=== PATIENT | female | born 1980 | race Caucasian/White ===

== ENCOUNTER 2017-01-10 21:30 | Emergency (ER) | payer BC ==
--- NOTE | 2017-01-10 21:35 | UC ---
Lower Extremity/Ankle HPI - HPI Summary HPI Summary: 36 YEAR OLD FEMALE PRESENTS WITH COMPLAINS OF SEVERE RESTLESS LEG SYNDROME. - History of Current Complaint Stated Complaint: LEG PAIN- YEARS Time Seen by Provider: 01/10/17 21:32 Hx Last Menstrual Period: now - Allergies/Home Medications Allergies/Adverse Reactions: Allergies Allergy/AdvReac Type Severity Reaction Status Date / Time Penicillins Allergy Severe Swelling Verified 01/10/17 21:38 Sulfa Drugs Allergy Severe HIVES, Verified 01/10/17 21:38 DIZZINESS Home Medications: Home Medications traMADol TAB* [Ultram*] 100 mg PO BEDTIME PRN 01/10/17 [History Confirmed ] PMH/Surg Hx/FS Hx/Imm Hx - Surgical History Surgical History: Yes Surgery Procedure, Year, and Place: appendectomy, [place]. D&C. Gastric Bypass - Family History Known Family History: Positive: Diabetes - Social History Alcohol Use: None Substance Use Type: None Smoking Status (MU): Former Smoker Review of Systems Constitutional: Negative Skin: Negative Eyes: Negative ENT: Negative Respiratory: Negative Cardiovascular: Negative Gastrointestinal: Negative Motor: Negative Neurovascular: Negative Musculoskeletal: Arthralgia, Myalgia, Other: - RESLESS LEG SYNDROME Neurological: Negative Psychological: Negative All Other Systems Reviewed And Are Negative: Yes Physical Exam Triage Information Reviewed: Yes Eye Exam: Normal ENT Exam: Normal Dental Exam: Normal Neck exam: Normal Neck: Positive: 1 Respiratory Exam: Normal Cardiovascular Exam: Normal Abdominal Exam: Normal Musculoskeletal Exam: Normal Neurological Exam: Normal Psychological Exam: Normal Skin Exam: Normal Lower Extremity Course/Dx - Differential Dx/Diagnosis Provider Diagnoses: RESTLESS LEG SYNDROME Discharge - Discharge Plan Condition: Stable Disposition: HOME Prescriptions: Methocarbamol [Robaxin-750 MG TAB] 750 mg PO Q8HR PRN #30 tab PRN Reason: Spasms - Muscle Patient Education Materials: Restless Legs Syndrome (ED) Referrals: Cesario Long MD [Primary Care Provider] - As Soon As Possible Vinnie Avila MD [Medical Doctor] -
[2017-01-10 21:55] VITALS: BP 145/65
[2017-01-10] MEDS ORDERED: Carisoprodol TAB* 350 MG PO ONE ×2 (22:00→22:02)
== END 2017-01-10 22:12 | disposition home or self-care (01) ==
LOC: UCCORT 21:30
DX: G25.81 Restless legs syndrome (principal); Z87.891 Personal history of nicotine dependence
CPT/HCPCS: 99212; A9270-GY; G0463

== ENCOUNTER 2017-02-13 20:44 | Emergency (ER) | payer BC ==
[2017-02-13 21:04] VITALS: BP 148/74
[2017-02-13] MEDS ORDERED: HYDROcodone/ACETAMIN 5-325 MG* 1 TAB PO ONE (21:19)
--- NOTE | 2017-02-13 21:20 | UC ---
Lower Extremity/Ankle HPI - HPI Summary HPI Summary: right ham string pain after doing a split while sliding in to second base tonight playing softball - History of Current Complaint Chief Complaint: UCLowerExtremity Stated Complaint: LEG INJURY Time Seen by Provider: 02/13/17 20:58 Hx Obtained From: Patient Hx Last Menstrual Period: now ?: No Onset/Duration: Sudden Onset, Lasting Hours, Still Present Severity Initially: Moderate Severity Currently: Moderate Pain Intensity: 8 Pain Scale Used: 0-10 Numeric Aggravating Factor(s): Standing, Ambulation Alleviating Factor(s): Rest Able to Bear Weight: Yes - with pain - Allergies/Home Medications Allergies/Adverse Reactions: Allergies Allergy/AdvReac Type Severity Reaction Status Date / Time Penicillins Allergy Severe Swelling Verified 02/13/17 21:04 Sulfa Drugs Allergy Severe HIVES, Verified 02/13/17 21:04 DIZZINESS Home Medications: Home Medications Gabapentin CAP(*) [Neurontin 100 mg CAP(*)] 100 mg PO TID 02/13/17 [History Confirmed 02/13/17] Melatonin 1 mg PO BEDTIME 02/13/17 [History Confirmed 02/13/17] PMH/Surg Hx/FS Hx/Imm Hx Previously Healthy: No - restless legs, insomnia - Surgical History Surgical History: Yes Surgery Procedure, Year, and Place: appendectomy, [place]. D&C. Gastric Bypass - Family History Known Family History: Positive: Diabetes - Social History Occupation: Employed Part-time Lives: With Family Alcohol Use: None Substance Use Type: None Smoking Status (MU): Former Smoker When Did the Patient Quit Smoking/Using Tobacco: 2010 Review of Systems Constitutional: Negative Skin: Negative Eyes: Negative ENT: Negative Respiratory: Negative Cardiovascular: Negative Gastrointestinal: Negative Genitourinary: Negative Motor: Negative Neurovascular: Negative Musculoskeletal: Negative, Myalgia - right hamstring pain Neurological: Negative Psychological: Negative All Other Systems Reviewed And Are Negative: Yes Physical Exam Triage Information Reviewed: Yes Appearance: Well-Appearing, Pain Distress, Obese Vital Signs: Initial Vital Signs Temp 98.7 F 02/13/17 20:55 Pulse 84 02/13/17 20:55 Resp 18 02/13/17 20:55 BP 148/74 02/13/17 20:55 Pulse Ox 99 02/13/17 20:55 Vital Signs Reviewed: Yes Eye Exam: Normal Eyes: Positive: Conjunctiva Clear ENT Exam: Normal ENT: Positive: Normal ENT inspection, Hearing grossly normal. Negative: Nasal congestion, Nasal drainage, Trismus, Muffled/hoarse voice Dental Exam: Normal Neck exam: Normal Neck: Positive: Supple, Nontender, No Lymphadenopathy Respiratory Exam: Normal Respiratory: Positive: Chest non-tender, No respiratory distress, No accessory muscle use Cardiovascular Exam: Normal Cardiovascular: Positive: RRR, Pulses Normal, Brisk Capillary Refill Musculoskeletal Exam: Normal Musculoskeletal: Positive: Strength Intact, ROM Intact, No Edema, Other: - right posterior thight painful ---no pain hip pelvis, femur, knee Neurological Exam: Normal Neurological: Positive: Alert, Muscle Tone Normal Psychological Exam: Normal Skin Exam: Normal Lower Extremity Course/Dx - Course Course Of Treatment: ice, jamshid wrap, ortho, elevated blood pressure with history of hypertension, pain control - Differential Dx/Diagnosis Differential Diagnosis/HQI/PQRI: Bursitis, Contusion, Fracture (Closed), Sprain , Strain Provider Diagnoses: right ham string strain Discharge - Discharge Plan Condition: Stable Disposition: HOME Prescriptions: Hydrocodone-Acetaminophen [Hydrocodone/Acetaminophen 5-325 mg] 1 - 2 tab PO Q6H PRN #20 tab MDD 6 PRN Reason: Pain Patient Education Materials: Muscle Strain (ED), Core Strengthening Exercises ( GEN), Hamstring Exercises (GEN), Hamstring Injury (ED) Referrals: Corey Brantley MD [Medical Doctor] - 4 Days KRISTY Sky [Primary Care Provider] - 2 Weeks
== END 2017-02-13 21:49 | disposition home or self-care (01) ==
LOC: UCEAST 20:44
DX: S76.811A Strain of other specified muscles, fascia and tendons at thigh level, right thigh, initial encounter (principal); X58.XXXA Exposure to other specified factors, initial encounter; Y93.64 Activity, baseball; Y92.320 Baseball field as the place of occurrence of the external cause; E66.9 Obesity, unspecified; Z88.0 Allergy status to penicillin; Z88.2 Allergy status to sulfonamides; Z87.891 Personal history of nicotine dependence
CPT/HCPCS: 99213; G0463

== ENCOUNTER 2017-04-17 19:45 | Emergency (ER) | payer BC ==
[2017-04-17 19:52] VITALS: BP 153/78
[2017-04-17] MEDS ORDERED: HYDROcodone/ACETAMIN 5-325 MG* 1 TAB PO ONE (20:07)
--- NOTE | 2017-04-17 20:15 | UC ---
Hip/Pelvis Pain - HPI Summary HPI Summary: 36 yo female did a split when she slipped playing V-ball c/o pain right mid ham string similar injury in summer it took about 2 weeks to feel better did not go to PT as was suggested had gastric bypass and told not to take NSAIDS - History Of Current Complaint Chief Complaint: UCLowerExtremity Stated Complaint: LEG INJURY Time Seen by Provider: 04/17/17 19:51 Hx Last Menstrual Period: 03/21/17 Onset/Duration: Sudden Onset, Lasting Hours Severity Initially: Moderate Severity Currently: Moderate Pain Intensity: 7 Pain Scale Used: 0-10 Numeric Location: Diffuse Character Of Pain: Aching, Throbbing, Spasmodic Aggravating Factor(s): Movement, Weight Bearing Alleviating Factor(s): Rest Related History: Similar Episode/Dx As - torn hamstring - Allergies/Home Medications Allergies/Adverse Reactions: Allergies Allergy/AdvReac Type Severity Reaction Status Date / Time Penicillins Allergy Severe Swelling Verified 04/17/17 19:52 Sulfa Drugs Allergy Severe HIVES, Verified 04/17/17 19:52 DIZZINESS Home Medications: Home Medications Sitagliptin Phosphate [Januvia] 100 mg 04/17/17 [History] PMH/Surg Hx/FS Hx/Imm Hx Endocrine History: Diabetes - Surgical History Surgical History: Yes Surgery Procedure, Year, and Place: appendectomy, [place]. D&C. Gastric Bypass - Family History Known Family History: Positive: Diabetes - Social History Alcohol Use: None Substance Use Type: None Smoking Status (MU): Former Smoker When Did the Patient Quit Smoking/Using Tobacco: 2010 Review of Systems Constitutional: Negative Skin: Negative Eyes: Negative ENT: Negative Respiratory: Negative Cardiovascular: Negative Gastrointestinal: Negative Genitourinary: Negative Motor: Negative Neurovascular: Negative Musculoskeletal: Myalgia Neurological: Negative Psychological: Negative Is Patient Immunocompromised?: No All Other Systems Reviewed And Are Negative: Yes Physical Exam Triage Information Reviewed: Yes Appearance: Well-Nourished, Pain Distress, Other: - BSA 43 Vital Signs: Initial Vital Signs Temp 98.1 F 04/17/17 19:49 Pulse 97 04/17/17 19:49 Resp 18 04/17/17 19:49 BP 153/78 04/17/17 19:49 Pulse Ox 100 04/17/17 19:49 Eyes: Positive: Conjunctiva Clear ENT: Positive: Hearing grossly normal. Negative: Nasal congestion, Nasal drainage, Trismus, Muffled/hoarse voice Neck: Positive: Nontender, No Lymphadenopathy Respiratory: Positive: Lungs clear, Normal breath sounds, No respiratory distress, No accessory muscle use Cardiovascular: Positive: RRR, No Murmur Musculoskeletal: Positive: ROM Intact, No Edema, Other: - antalgic gait Neurological: Positive: Alert Psychological Exam: Normal Skin: Positive: rashes Hip Injury Course/Dx - Differential Dx/Diagnosis Provider Diagnoses: torn right hamstring muscle Discharge - Discharge Plan Condition: Stable Disposition: HOME Prescriptions: HYDROcodone/ACETAMIN 5-325 MG* [[place] 5-325 TAB*] 1 tab PO Q4H PRN #20 tab MDD 5 PRN Reason: Pain Patient Education Materials: Hamstring Injury (ED) Referrals: [facility] [Outside] - As Soon As Possible KRISTY Sky [Primary Care Provider] - If Needed Additional Instructions: ice at least twice daily pt consult don't take tylenol in addition to the norco Images Front/Back of Body, Lg ([place]): 1 - tender mid hamstring
== END 2017-04-17 20:23 | disposition home or self-care (01) ==
LOC: UCEAST 19:45
DX: S39.013A Strain of muscle, fascia and tendon of pelvis, initial encounter (principal); W01.0XXA Fall on same level from slipping, tripping and stumbling without subsequent striking against object, initial encounter; Z98.84 Bariatric surgery status; Z88.2 Allergy status to sulfonamides; Z88.0 Allergy status to penicillin; Z87.891 Personal history of nicotine dependence
CPT/HCPCS: 99212; G0463

== ENCOUNTER 2017-08-24 14:44 | Emergency (ER) | payer BC ==
[2017-08-24 15:17] VITALS: BP 113/62
--- NOTE | 2017-08-24 16:26 | RAD ---
INDICATION: Bilateral hip pain. COMPARISON: There are no prior studies available for comparison. TECHNIQUE: An AP view of the pelvis and frontal and lateral views of both hips were obtained. FINDINGS: The bones are in normal alignment. No fracture is seen. There is bilateral acetabular retroversion which would predispose to pincer type femoral acetabular impingement. There is mild bilateral osteoarthritic change in the hips. IMPRESSION: 1. MILD BILATERAL OSTEOARTHRITIC CHANGE IN THE HIPS. 2. BILATERAL ACETABULAR RETROVERSION.
--- NOTE | 2017-08-24 16:28 | RAD ---
INDICATION: Low back pain. COMPARISON: There are no prior studies available for comparison. TECHNIQUE: 5 views of the lumbar spine were obtained including lateral, oblique, AP and a coned-down lateral view of the lumbar sacral junction. FINDINGS: There is a mild lumbar scoliosis convex toward the left side. The vertebra are otherwise in normal alignment. No fracture is seen. There is mild to moderate degenerative disc disease at the L1-L2 3 and L3-L4 levels. IMPRESSION: MILD TO MODERATE DEGENERATIVE DISC DISEASE.
--- NOTE | 2017-08-24 16:59 | UC ---
Josue Greer Stephanie, scribed for Hair Tran MD on 08/24/17 at 1556 . Back Pain HPI - HPI Summary HPI Summary: The pt is a 36 y/o F presenting to with c/o lower back pain that began 7 months ago but has become more severe over the past 3 months. The lower back pain radiates to her L hip. Symptoms include sleep disturbances due to the pain. The pt states she has gained weight since having her last child and has a constant pain over her lower back that is aggravated by exercise and movement. The pain is rated as a 6.5 in severity. - History of Current Complaint Chief Complaint: UCBackPain Stated Complaint: HIP AND BACK PAIN Time Seen by Provider: 08/24/17 15:33 Hx Obtained From: Patient Hx Last Menstrual Period: 03/21/17 Onset/Duration: Gradual Onset, Other - past 7 months Timing: Constant Severity Currently: Moderate Pain Intensity: 6 Pain Scale Used: 0-10 Numeric Back Pain: Is Discrete @ - lower back and hips Aggravating Factor(s): Movement Alleviating Factor(s): Rest Associated Signs And Symptoms: Positive: Other - sleep disturbances due to pain - Allergies/Home Medications Allergies/Adverse Reactions: Allergies Allergy/AdvReac Type Severity Reaction Status Date / Time metformin Allergy Nausea And Verified 08/24/17 15:18 Vomiting Penicillins Allergy Hives Verified 08/24/17 15:18 Sulfa (Sulfonamide Allergy Rash And Verified 08/24/17 15:18 Antibiotics) Itching Home Medications: Home Medications Duloxetine HCl [Cymbalta] 20 mg PO DAILY 08/24/17 [History Confirmed 08/24/17] PMH/Surg Hx/FS Hx/Imm Hx Endocrine History: Diabetes - type 2, Other - obesity Other Endocrine History: . - Surgical History Surgical History: Yes Surgery Procedure, Year, and Place: appendectomy, [place]. D&C. Gastric Bypass - Family History Known Family History: Positive: Diabetes - Social History Occupation: Works From/At Home Lives: With Family Alcohol Use: None Substance Use Type: None Smoking Status (MU): Former Smoker When Did the Patient Quit Smoking/Using Tobacco: 2010 Review of Systems Constitutional: Negative Skin: Negative Eyes: Negative ENT: Negative Respiratory: Negative Cardiovascular: Negative Gastrointestinal: Negative Genitourinary: Negative Motor: Negative Neurovascular: Negative Musculoskeletal: Other: - pain in lower back and hips bilaterally, worse in L hip. Neurological: Negative Psychological: Negative All Other Systems Reviewed And Are Negative: Yes Physical Exam Triage Information Reviewed: Yes Vital Signs: Initial Vital Signs Temp 98.2 F 08/24/17 15:12 Pulse 81 08/24/17 15:12 Resp 20 08/24/17 15:12 BP 113/62 08/24/17 15:12 Pulse Ox 98 08/24/17 15:12 Vital Signs Reviewed: Yes - Additional Comments General: well-appearing, no pain distress Skin: warm, color reflects adequate perfusion, dry Head: normal Eyes: EOMI, BLANCA ENT: normal Neck: supple, nontender Respiratory: CTA, breath sounds present Cardiovascular: RRR Abdomen: soft, nontender Bowel: present Musculoskeletal: tender to palpation mid lower lumbar, tender to palpation over the L buttock over sciatic nerve distribution. Tender to palpation over L greater trochanter. Neurological: normal, sensory/motor intact, A&O x3 Psychological: affect/mood appropriate Diagnostics - Radiology Hip XRAY Xray Interpretation: Positive (See Comments) Radiology Interpretation Completed By: Radiologist - 1) MILD BILATERAL OSTEOARTHRITIC CHANGE IN THE HIPS 2) BILATERAL ACETABULAR RETROVERSION Lumbar spine XRAY Xray Interpretation: Positive (See Comments) Radiology Interpretation Completed By: Radiologist - MILD TO MODERATE DEGENERATE DISC DISEASE Back Pain Course/Dx - Course Course Of Treatment: DISCUSSED RESULTS WITH PATIENT. SHE WILL F/U WITH PMD. - Differential Dx/Diagnosis Provider Diagnoses: BILATERAL HIP PAIN. LOW BACK PAIN Discharge - Discharge Plan Condition: Stable Disposition: HOME Prescriptions: HYDROcodone/ACETAMIN 5-325 MG* [[place] 5-325 TAB*] 1 tab PO Q4H PRN #20 tab MDD 6 PRN Reason: Pain Patient Education Materials: Back Pain (ED), Hip Pain (ED) Referrals: KRISTY Sky [Primary Care Provider] - Additional Instructions: FOLLOW UP WITH YOUR DOCTOR. GET RECHECKED FOR ANY WORSENING OF YOUR CONDITION OR QUESTIONS OR CONCERNS. The documentation as recorded by the Josue maurice Stephanie accurately reflects the service I personally performed and the decisions made by me, Hair Tran MD.
== END 2017-08-24 17:02 | disposition home or self-care (01) ==
LOC: UCEAST 14:44
DX: M25.552 Pain in left hip (principal); M25.551 Pain in right hip; M54.5 Low back pain; E11.9 Type 2 diabetes mellitus without complications
CPT/HCPCS: 72110; 73523; 99212; G0463

== ENCOUNTER 2017-09-01 20:03 | Emergency (ER) | payer BC ==
[2017-09-01 20:34] VITALS: BP 145/67
--- NOTE | 2017-09-01 20:58 | ED ---
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 She has been getting narcotic scripts from urgent care for her pain, and no PMD or ortho meeting yet as of today. She has promises for future appointment. The patient states she had a problem with large narcotic scripts from Dr Long in the past, switched PMD but cant see her PMD for a while. She states her new PMd took her off narcotics. The patient has no new injuries. She is complaining of localized pain over the instep of the left foot which is new. No new hip pain, no fever, no injuries. She verbalizes that she had gastric bypass and cannot take NSAIDS. She rates pain level of 6. - History of Current Complaint Chief Complaint: UCBackPain Stated Complaint: LEFT HIP/FOOT PAIN Time Seen by Provider: 09/01/17 20:36 Hx Last Menstrual Period: 07/27/17 Pain Intensity: 6 - Allergies/Home Medications Allergies/Adverse Reactions: Allergies Allergy/AdvReac Type Severity Reaction Status Date / Time Penicillins Allergy Hives Verified 09/01/17 20:35 Sulfa (Sulfonamide Allergy Rash And Verified 09/01/17 20:35 Antibiotics) Itching metformin AdvReac Nausea Verified 09/01/17 20:35 PMH/Surg Hx/FS Hx/Imm Hx Endocrine/Hematology History: Reports: Hx Diabetes - TYPE II Denies: Hx Thyroid Disease Cardiovascular History: Denies: Hx Hypertension Respiratory History: Denies: Hx Asthma, Hx Chronic Obstructive Pulmonary Disease (COPD) GI History: Denies: Hx Ulcer Neurological History: Denies: Other Neuro Impairments/Disorders - Surgical History Surgery Procedure, Year, and Place: appendectomy, [place]. D&C. Gastric Bypass - Immunization History Date of Tetanus Vaccine: PT STATES UNSURE Date of Influenza Vaccine: NONE Infectious Disease History: No Infectious Disease History: Denies: Hx Clostridium Difficile, Hx Hepatitis, Hx Human Immunodeficiency Virus (HIV), Hx of Known/Suspected MRSA, Hx Shingles, Hx Tuberculosis, Hx Known/ Suspected VRE, Hx Known/Suspected VRSA, History Other Infectious Disease, Traveled Outside the [place] in Last 30 Days - Family History Known Family History: Positive: Diabetes - Social History Alcohol Use: None Substance Use Type: Reports: None Smoking Status (MU): Former Smoker Type: Cigarettes Amount Used/How Often: 1/2 ppd Length of Time of Smoking/Using Tobacco: approx 8 yrs Review of Systems Constitutional: Negative Positive: Other - left hip, left foot pain. All Other Systems Reviewed And Are Negative: Yes Physical Exam Triage Information Reviewed: Yes Vital Signs On Initial Exam: Initial Vitals Temp Pulse Resp BP Pulse Ox 98.3 F 82 16 145/67 98 09/01/17 20:20 09/01/17 20:20 09/01/17 20:20 09/01/17 20:20 09/01/17 20:20 Vital Signs Reviewed: Yes Appearance: Positive: Well-Appearing, No Pain Distress, Obese Skin: Positive: Warm, Skin Color Reflects Adequate Perfusion Eyes: Positive: EOMI Neck: Positive: Nontender Respiratory/Lung Sounds: Positive: Clear to Auscultation, Breath Sounds Present Cardiovascular: Positive: RRR. Negative: Murmur Abdomen Description: Positive: Nontender Musculoskeletal: Positive: Strength/ROM Intact, Other - she is able to bend over and remove her own sock fromt he left foot. She has no gross deformity of the left foot. No soft tissue swelling. No bruise, no redness, no increased warmth. Neurological: Positive: Sensory/Motor Intact, Alert, Oriented to Person Place, Time, CN Intact II-III, Normal Gait - Sami Coma Scale Best Eye Response: 4 - Spontaneous Best Motor Response: 6 - Obeys Commands Best Verbal Response: 5 - Oriented Coma Scale Total: 15 Diagnostics - Vital Signs Vital Signs Temp Pulse Resp BP Pulse Ox 09/01/17 20:20 98.3 F 82 16 145/67 98 - Laboratory Lab Statement: Any lab studies that have been ordered have been reviewed, and results considered in the medical decision making process. Lower Extremity Course/Dx - Course Course Of Treatment: [id number] ISTOP number. She has received scripts for Narcotics from urgent care for the Since February of 2017 without any PMD establishment. She is refusing the xray of her foot. She is not happy that she has not received a prescription for narcotics. It was explained that she needs to see her PMD and she refused the xray of her foot and signed out AMA. - Diagnoses Provider Diagnoses: Foot pain, left, Hip pain, left, Hypertension Discharge - Discharge Plan Condition: Good Disposition: AGAINST MEDICAL ADVICE Referrals: KRISTY Sky [Primary Care Provider] -
== END 2017-09-01 21:19 | disposition left against medical advice (07) ==
LOC: UCCORT 20:03
DX: M79.672 Pain in left foot (principal); M25.552 Pain in left hip; I10 Essential (primary) hypertension; Z87.891 Personal history of nicotine dependence; Z88.8 Allergy status to other drugs, medicaments and biological substances; Z88.0 Allergy status to penicillin
CPT/HCPCS: 99212; G0463